=== PATIENT | male | born 1955 | race Native Hawaiian/Other Pacific Islander ===

== ENCOUNTER 2022-07-28 13:06 | Outpatient (CLI) | payer OTHER | END 2022-07-28 19:34 | disposition home or self-care (01) | LOC: CT 13:06 | PROVIDERS: ATTEND Internal Medicine | DX: H81.10 Benign paroxysmal vertigo, unspecified ear (principal); J44.1 Chronic obstructive pulmonary disease with (acute) exacerbation; R55 Syncope and collapse; G45.9 Transient cerebral ischemic attack, unspecified | CPT/HCPCS: 36600; 82805; 93005 ==

== ENCOUNTER 2022-08-11 10:23 | Outpatient (CLI) | payer OTHER | END 2022-08-11 18:58 | disposition home or self-care (01) | LOC: MRI 10:23 | PROVIDERS: ATTEND Internal Medicine | DX: M54.59 Other low back pain (principal); M25.552 Pain in left hip; M79.605 Pain in left leg ==